=== PATIENT | male | born 1960 | race Caucasian/White ===

== ENCOUNTER → 2021-09-07 | Outpatient (CLI) | payer OTHER ==
[~2021-09-07] MED LIST: ADULT LOW DOSE81 MG PO; AMLODIPINE BES2.5 MG PO; CLOPIDOGREL75 MG PO; ESCITALOPRAM OXA5 MG PO; FISH OIL 1,0001 EACH PO; GABAPENTIN300 MG PO; GLIPIZIDE XL2.5 MG PO; IBUPROFEN600 MG PO; IBUPROFEN800 MG PO; OXYCODONE HCL15 MG PO; PRAVASTATIN SOD40 MG PO; PROTONIX 40 MG40 M1 PO; QUETIAPINE FUM100 MG PO; ROPINIROLE HCL1 MG PO; SEROQUEL TAB 2525 MG PO
[2021-09-07 11:52] LABS: HEMOGLOBIN 14.7 gm/dl (14.0-17.5); RED BLOOD COUNT 4.9 M/UL (4.20-5.50); WHITE BLOOD COUNT 9.1 K/UL (4.5-11.0)
== END ==
LOC: OPSV2 10:00 → EDSTATUS 11:00 → OPSV2 11:00
PROVIDERS: Orthopaedic Surgery
DX: Z01.818 Encounter for other preprocedural examination (principal); M17.12 Unilateral primary osteoarthritis, left knee
CPT/HCPCS: 80048; 85025; 93005

== ENCOUNTER → 2021-09-20 | Outpatient (CLI) | payer OTHER ==
[~2021-09-20] MED LIST changes: +ASPIR-TRIN325 MG PO; +OXYCODON-ACETA1 EAC1 PO
== END ==
LOC: LAB 08:23
PROVIDERS: Orthopaedic Surgery
DX: Z01.812 Encounter for preprocedural laboratory examination (principal)
CPT/HCPCS: 36415; 80048; 86850; 86900; 86901

== ENCOUNTER 2021-09-21 06:23 | Day surgery (SDC) | payer OTHER ==
[~2021-09-21] VITALS: Ht 182.9 cm; Wt 141.5 kg
[~2021-09-21 06:23] MED LIST changes: -ASPIR-TRIN325 MG PO; -OXYCODON-ACETA1 EAC1 PO
[2021-09-22] MEDS ORDERED: ASPIR-TRIN325 MG PO (08:00)
[2021-09-22] MEDS ORDERED: OXYCODON-ACETA1 EAC1 PO (08:00)
== END 2021-09-22 13:48 | disposition home or self-care (01) ==
LOC: OR 06:23 → EDSTATUS 09:15 → OR 10:30 → M/S 16:18 → OR 09-22 13:48
DX: M17.12 Unilateral primary osteoarthritis, left knee (principal); G89.18 Other acute postprocedural pain; I10 Essential (primary) hypertension; E78.5 Hyperlipidemia, unspecified; J44.9 Chronic obstructive pulmonary disease, unspecified; I25.10 Atherosclerotic heart disease of native coronary artery without angina pectoris; K21.9 Gastro-esophageal reflux disease without esophagitis; E11.9 Type 2 diabetes mellitus without complications; F17.210 Nicotine dependence, cigarettes, uncomplicated; Z79.82 Long term (current) use of aspirin; Z79.84 Long term (current) use of oral hypoglycemic drugs; Z79.899 Other long term (current) drug therapy; Z20.822 Contact with and (suspected) exposure to COVID-19
CPT/HCPCS: 73560; 76000; 82962; 97116-GP-CQ; 97161; 97166; 97535; C1776; J0171; J0690; J1100; J1170; J1885; J2001; J2250; J2274; J2370; J2405; J2704; J2795; J3010; J3475; J7030; J7120

== ENCOUNTER 2021-09-25 21:06 | Emergency (ER) | payer OTHER ==
[~2021-09-25 21:06] MED LIST changes: +ASPIR-TRIN325 MG PO; +OXYCODON-ACETA1 EAC1 PO
[2021-09-25 23:42] LABS: HEMOGLOBIN 12.5 gm/dl (14.0-17.5); RED BLOOD COUNT 4.16 M/UL (4.20-5.50); WHITE BLOOD COUNT 17.8 K/UL (4.5-11.0)
[2021-09-26 00:09] LABS: BUN/CREATININE RATIO 12 (0-10)
[2021-09-26] MEDS ORDERED: SENNA8.6 MG PO (01:10)
[2021-09-26] MEDS ORDERED: BISACODYL10 MG PR (01:10)
[2021-09-26] MEDS ORDERED: KRISTALOSE10 GM PO (01:10)
[2021-09-26] MEDS ORDERED: PEG3350510 GM PO (01:10)
== END 2021-09-26 01:25 | disposition home or self-care (01) ==
LOC: ER1 21:06
PROVIDERS: Student in an Organized Health Care Education/Training Program
DX: K85.90 Acute pancreatitis without necrosis or infection, unspecified (principal); K59.00 Constipation, unspecified; I11.9 Hypertensive heart disease without heart failure; E11.9 Type 2 diabetes mellitus without complications; F17.210 Nicotine dependence, cigarettes, uncomplicated
CPT/HCPCS: 74018; 80053; 83690; 85025; 96374; 96375; 99284; J1885; J2270

== ENCOUNTER 2021-10-03 11:29 | Inpatient (IN) | payer OTHER ==
[~2021-10-03] VITALS: Ht 182.9 cm; Wt 142.4 kg
[~2021-10-03 11:29] MED LIST changes: +BISACODYL10 MG PR; +KRISTALOSE10 GM PO; +PEG3350510 GM PO; +SENNA8.6 MG PO
[2021-10-03 12:17] LABS: RED BLOOD COUNT 4.32 M/UL (4.20-5.50); WHITE BLOOD COUNT 19.5 K/UL (4.5-11.0)
[2021-10-03 12:44] LABS: BUN/CREATININE RATIO 10 (0-10)
[2021-10-03] MEDS ORDERED: LACTULOSE10 GM/15 M PO (15:22)
[2021-10-03] MEDS ORDERED: NITROGLYCERIN0.4 MG SL (15:22)
[2021-10-03] MEDS ORDERED: ASPIRIN EC81 MG PO (15:22)
[2021-10-03] MEDS ORDERED: QUETIAPINE FUMA25 MG PO (15:23)
[2021-10-03] MEDS ORDERED: OXYCODONE HCL15 MG PO (15:25)
[2021-10-03] MEDS ORDERED: ASPIRIN EC325 MG PO (15:27)
[2021-10-03] MEDS ORDERED: SENNA8.6 MG PO (15:28)
[2021-10-04 01:56] LABS: HEMOGLOBIN 11.5 gm/dl (14.0-17.5); WHITE BLOOD COUNT 18.5 K/UL (4.5-11.0)
[2021-10-04 02:11] LABS: RED BLOOD COUNT 3.83 M/UL (4.20-5.50)
[2021-10-04 02:17] LABS: BUN/CREATININE RATIO 9 (0-10)
[2021-10-05 03:32] LABS: RED BLOOD COUNT 3.68 M/UL (4.20-5.50)
[2021-10-05 03:42] LABS: WHITE BLOOD COUNT 11.6 K/UL (4.5-11.0)
[2021-10-05 03:58] LABS: BUN/CREATININE RATIO 10 (0-10)
[2021-10-05] MEDS ORDERED: ELIQUIS 5 MG TAB5 MG PO (11:08)
--- NOTE | 2021-10-05 15:13 | NUR ---
1513- TELE NOTIFIED NURSE OF PT HAVING JUNCTIONAL RHYTHM. NURSE NOTIFIED DR. DIAZ. STATED TO FILE IN CHART,HE WILL LOOK AT IT. PT STABLE. WILL CONITNUE TO MONITOR.
== END 2021-10-05 15:28 | disposition home or self-care (01) | DRG 439 ==
LOC: ER1 11:29 → MED SURG 4 15:17 → CDU 15:17 → PROG CARE 17:04 → MED SURG 4 10-04 13:05
PROVIDERS: Nurse Practitioner; Physician Assistant Medical; ADMIT Internal Medicine
DX: K85.90 Acute pancreatitis without necrosis or infection, unspecified (principal); I82.819 Embolism and thrombosis of superficial veins of unspecified lower extremity; Z68.41 Body mass index [BMI] 40.0-44.9, adult; Z20.822 Contact with and (suspected) exposure to COVID-19; E78.5 Hyperlipidemia, unspecified; I25.10 Atherosclerotic heart disease of native coronary artery without angina pectoris; Z96.653 Presence of artificial knee joint, bilateral; N18.30 Chronic kidney disease, stage 3 unspecified; E11.22 Type 2 diabetes mellitus with diabetic chronic kidney disease; K21.9 Gastro-esophageal reflux disease without esophagitis; D72.829 Elevated white blood cell count, unspecified; I12.9 Hypertensive chronic kidney disease with stage 1 through stage 4 chronic kidney disease, or unspecified chronic kidney disease; E66.01 Morbid (severe) obesity due to excess calories; K76.0 Fatty (change of) liver, not elsewhere classified; Z79.01 Long term (current) use of anticoagulants; Z79.4 Long term (current) use of insulin; Z95.5 Presence of coronary angioplasty implant and graft; Z90.49 Acquired absence of other specified parts of digestive tract
CPT/HCPCS: 0240U; 36415; 71045; 71046; 76705; 80053; 81001; 82150; 82550; 82553; 82962; 83690; 83735; 84478; 84484; 85025; 85027; 85379; 86140; 87086; 93971; 96374; 96375; 96376; 99285; G0480; J1170; J1335; J1650; J2270; J2405; J3475; J7030; Q9967

== ENCOUNTER → 2021-11-02 | Outpatient (CLI) | payer MEDICARE, OTHER ==
[~2021-11-02] MED LIST changes: +ASPIRIN EC325 MG PO; +ASPIRIN EC81 MG PO; +ELIQUIS 5 MG TAB5 MG PO; +LACTULOSE10 GM/15 M PO; +NITROGLYCERIN0.4 MG SL; +QUETIAPINE FUMA25 MG PO
[2021-11-02 10:45] LABS: HEMOGLOBIN 13.2 gm/dl (14.0-17.5); RED BLOOD COUNT 4.45 M/UL (4.20-5.50); WHITE BLOOD COUNT 8.6 K/UL (4.5-11.0)
== END ==
LOC: CT 10:13
PROVIDERS: Internal Medicine Hematology & Oncology
DX: S35.3 Injury of portal or splenic vein and branches (principal); K86.89 Other specified diseases of pancreas
CPT/HCPCS: 36415; 74160; 80053; 85025; Q9967

== ENCOUNTER 2021-11-16 19:36 | Emergency (ER) | payer MEDICARE, OTHER ==
[2021-11-16 19:56] LABS: HEMOGLOBIN 14.2 gm/dl (14.0-17.5); RED BLOOD COUNT 4.77 M/UL (4.20-5.50); WHITE BLOOD COUNT 11.8 K/UL (4.5-11.0)
[2021-11-16 20:18] LABS: BUN/CREATININE RATIO 7 (0-10)
== END 2021-11-17 01:16 | disposition home or self-care (01) ==
LOC: ER1 19:36
PROVIDERS: Physician Assistant Medical
DX: R10.9 Unspecified abdominal pain (principal); F17.210 Nicotine dependence, cigarettes, uncomplicated; I11.9 Hypertensive heart disease without heart failure; E78.5 Hyperlipidemia, unspecified; E11.9 Type 2 diabetes mellitus without complications; Z95.5 Presence of coronary angioplasty implant and graft
CPT/HCPCS: 80053; 81001; 83690; 85025; 85610; 85730; 96374; 99284; J2405; Q9967